=== PATIENT | female | born 1985 | race Caucasian/White ===

== ENCOUNTER 2016-05-19 12:46 | Emergency (ER) | payer OTHER ==
[~2016-05-19] VITALS: Ht 149.9 cm; Wt 85.3 kg
[~2016-05-19 12:46] MED LIST: ACIPHEX20 MG PO; ANTI-DIARRHEA2 MG PO; BENTYL10 MG PO; BUTALB-APAP-CA1 EACH PO; CALCIUM PO; CELEXA40 MG PO; CIPRO500 MG PO; CITALOPRAM HBR20 M1 PO; CLONAZEPAM0.5 MG PO; CYCLOBENZAPRINE10 MG PO; CYMBALTA60 MG PO; DAILY MULTIPLE1 EACH PO; DOCUSATE SODIU100 MG PO; ENDOCET 5-3251 EACH PO; FIORICET 50-301 EACH PO; IBUPROFEN800 MG PO; IMITREX100 MG PO; IRON325 M1 PO; JUNEL FE 1.5-31 EACH; KLONOPIN0.5 M1 PO; MACROBID100 MG PO; MULTIVITAMIN1 EAC2 PO; NAPROSYN250 MG PO; NAPROSYN500 MG PO; NAPROXEN500 MG PO; NEXIUM40 MG PO; OMNICEF300 M1 PO; PAIN & FEVER325 MG PO; PERCOCET 5/31 TABLET PO; PRAVASTATIN SOD40 MG; PRAZOSIN HCL1 MG PO; PREVACID30 MG PO; PRILOSEC OTC20 MG PO; PRISTIQ50 MG PO; PROMETHAZINE HC25 M1 PO; SERTRALINE HCL50 MG PO; TOPIRAMATE50 MG PO; TORADOL10 MG PO; TRAMADOL HCL50 MG PO; TRAZODONE HCL50 MG PO; TYLENOL WITH C1 EACH PO; ULTRAM50 MG PO; VIACTIV SOFT C1 EACH PO; VICODIN 5-3001 EACH PO; XANAX0.5 MG PO; ZOFRAN ODT4 MG PO; ZOFRAN ODT8 MG PO; ZOFRAN4 MG PO
[2016-05-19 13:29] LABS: ADD MIUA? NO; BILIRUBIN NEGATIVE; BLOOD NEGATIVE; COLOR YELLOW ((YELLOW)); GLUCOSE (STRIP) NEGATIVE; KETONES NEGATIVE; LEUKOCYTES NEGATIVE; NITRITE NEGATIVE; PH, URINE 6.5 (5-8); PROTEIN (STRIP) NEGATIVE; SPECIFIC GRAVITY 1.006 (1.000-1.030); UCUL ADDED? NO; UROBILINOGEN 0.2 MG/DL (0.2-1.0)
[2016-05-19 13:32] LABS: HEMATOCRIT 31.9 % (36.0-46.0); MCH 25.6 PG (29.0-34.0); MCHC 32.3 G/DL (30.0-36.0); MCV 79.2 FL (83-99); PLATELET COUNT 255 K/uL (156-360); RBC DIS.WIDTH-CV 12.8 % (11.8-14.6); RBC DIS.WIDTH-SD 36.5 % (39-53); RED BLOOD COUNT 4.03 M/uL (3.80-5.20); WHITE BLOOD COUNT 6.6 K/uL (4.1-10.2)
[2016-05-19 13:39] LABS: CHLORIDE 110 mEq/L (99-109); POTASSIUM 3.6 mEq/L (3.7-5.4); SODIUM 141 mEq/L (136-147)
[2016-05-19 13:41] LABS: GLUCOSE 120 mg/dL (70-99)
[2016-05-19 13:43] LABS: ANION GAP 8 MEQ/L (2-14); TOTAL BILIRUBIN 0.1 mg/dL (0.0-1.0)
[2016-05-19 13:45] LABS: ALKALINE PHOSPHATASE 71 IU/L (3-129); GFR ESTIMATE (CALCULATED) > 59 mL/min/
[2016-05-19 13:46] LABS: UREA NITROGEN (BUN) 4 mg/dL (9-23)
[2016-05-19 13:49] LABS: LIPASE 43 U/L (1.0-51.0)
[2016-05-19 13:57] LABS: QUANTITATIVE HCG < 4.0 MIU/ML
[2016-05-19] MEDS ORDERED: PERCOCET 5/31 TABLET PO (16:31)
[2016-05-19] MEDS ORDERED: NAPROXEN500 MG PO (16:31)
[2016-05-19 17:06] VITALS: BP 145/68
[2016-06-03] MEDS ORDERED: DESYREL 150 MG150 MG PO (15:12)
[2016-06-03] MEDS ORDERED: CIPRO500 MG PO (16:17)
== END 2016-05-19 17:09 | disposition home or self-care (01) ==
LOC: EME 12:46
DX: N83.201 Unspecified ovarian cyst, right side (principal); K21.9 Gastro-esophageal reflux disease without esophagitis; Z98.84 Bariatric surgery status; Z87.891 Personal history of nicotine dependence
CPT/HCPCS: 74176; 80053; 81003; 83690; 84702; 85027; 99281; 99282

== ENCOUNTER 2016-05-21 16:34 | Inpatient (IN) | payer OTHER ==
[~2016-05-21] VITALS: Ht 149.9 cm; Wt 84.8 kg
[2016-05-21 18:45] LABS: EOSINOPHIL (%) 1.7 % (0-5); EOSINOPHIL COUNT 0.1 K/uL (0-0.3); HEMATOCRIT 30.1 % (36.0-46.0); IMMATURE GRANULOCYTE (%) 0.1 % (0.0-0.7); IMMATURE GRANULOCYTE COUNT 0.1 K/uL; LYMPHOCYTE COUNT 1.6 K/uL (1.0-2.8); MCH 25.3 PG (29.0-34.0); MCHC 32.2 G/DL (30.0-36.0); MCV 78.4 FL (83-99); MEAN PLAT.VOLUME 10.2 uM^3 (9.5-12.4); MONOCYTE (%) 7.9 % (3-12); MONOCYTE COUNT 0.6 K/uL (0-0.8); NEUTROPHIL (%) 67.2 % (45-76); NEUTROPHIL COUNT 4.8 K/uL (1.8-6.4); PLATELET COUNT 258 K/uL (156-360); RBC DIS.WIDTH-CV 12.7 % (11.8-14.6); RBC DIS.WIDTH-SD 35.7 % (39-53); RED BLOOD COUNT 3.84 M/uL (3.80-5.20); WHITE BLOOD COUNT 7.1 K/uL (4.1-10.2)
[2016-05-21 18:59] LABS: CHLORIDE 109 mEq/L (99-109); POTASSIUM 3.9 mEq/L (3.7-5.4); SODIUM 139 mEq/L (136-147)
[2016-05-21 19:03] LABS: ANION GAP 5 MEQ/L (2-14)
[2016-05-21 19:04] LABS: SERUM ETHYL ALCOHOL < 10 mg/dL
[2016-05-21 19:05] LABS: ALKALINE PHOSPHATASE 77 IU/L (3-129); GFR ESTIMATE (CALCULATED) > 59 mL/min/
[2016-05-21 19:06] LABS: UREA NITROGEN (BUN) 5 mg/dL (9-23)
[2016-05-21 19:07] LABS: GLUCOSE 87 mg/dL (70-99); TOTAL BILIRUBIN 0.2 mg/dL (0.0-1.0)
[2016-05-21] MEDS ORDERED: FLONASE16 G1 BOTH NARES (19:28)
[2016-05-21] MEDS ORDERED: AMOX TR-K CLV1 EAC4 PO (19:28)
[2016-05-21 19:45] LABS: ADD MIUA? NO; BILIRUBIN NEGATIVE; BLOOD NEGATIVE; COLOR YELLOW ((YELLOW)); GLUCOSE (STRIP) NEGATIVE; KETONES NEGATIVE; LEUKOCYTES NEGATIVE; NITRITE NEGATIVE; PH, URINE 7.5 (5-8); PROTEIN (STRIP) TRACE; SPECIFIC GRAVITY 1.023 (1.000-1.030); UCUL ADDED? NO; UROBILINOGEN 0.2 MG/DL (0.2-1.0)
[2016-05-21 20:01] LABS: ADD MEDTOX COMMENT Y; AMPHETAMINE NEGATIVE (500 ng/mL); BARBITURATES PRESUMPTIVE POSITIVE (200 ng/mL); BENZODIAZEPINES NEGATIVE (150 ng/mL); COCAINE NEGATIVE (150 ng/mL); INTERNAL CONTROLS VALID? YES; METHADONE NEGATIVE (200 ng/mL); METHAMPHETAMINE NEGATIVE (500 ng/mL); OPIATES (MORPHINE) NEGATIVE (100 ng/mL); OXYCODONE PRESUMPTIVE POSITIVE (100 ng/mL); PHENCYCLIDINE NEGATIVE (25 ng/mL); PROPOXYPHENE NEGATIVE (300 ng/mL); THC CANNABINOIDS NEGATIVE (50 ng/mL); TRICYCLIC ANTIDEPRESSANTS NEGATIVE (300 ng/mL)
[2016-05-21 20:59] VITALS: BP 119/81
[2016-05-22 07:48] VITALS: BP 81/47
[2016-05-22 15:52] VITALS: BP 108/57
[2016-05-23 07:41] VITALS: BP 88/55
[2016-05-23] MEDS ORDERED: SERTRALINE HCL100 MG PO (12:43)
[2016-05-23] MEDS ORDERED: TRAZODONE HCL150 MG PO (12:43)
[2016-05-23] MEDS ORDERED: PRAZOSIN HCL1 MG PO (12:43)
[2016-06-03] MEDS ORDERED: DESYREL 150 MG150 MG PO (15:12)
[2016-06-03] MEDS ORDERED: CIPRO500 MG PO (16:17)
== END 2016-05-23 14:10 | disposition home or self-care (01) | DRG 885 ==
LOC: EME 16:34 → EDOF 19:25 → 1WEST 19:25
PROVIDERS: Emergency Medicine
DX: F33.9 Major depressive disorder, recurrent, unspecified (principal); R45.851 Suicidal ideations; F43.12 Post-traumatic stress disorder, chronic; F41.0 Panic disorder [episodic paroxysmal anxiety]; Z62.810 Personal history of physical and sexual abuse in childhood; R10.9 Unspecified abdominal pain; E28.2 Polycystic ovarian syndrome; K21.9 Gastro-esophageal reflux disease without esophagitis; K58.9 Irritable bowel syndrome, unspecified; M41.9 Scoliosis, unspecified; G43.909 Migraine, unspecified, not intractable, without status migrainosus; E66.3 Overweight; Z98.84 Bariatric surgery status; Z87.891 Personal history of nicotine dependence; Z68.37 Body mass index [BMI] 37.0-37.9, adult
CPT/HCPCS: 80053; 81003; 84999; 85025; 90839; 97150 GO; 97166 GO; 99281; 99284; G0480; Q0177

== ENCOUNTER 2016-06-06 05:10 | Inpatient (IN) | payer OTHER ==
[~2016-06-06] VITALS: Ht 149.9 cm; Wt 94.9 kg
[~2016-06-06 05:10] MED LIST changes: +AMOX TR-K CLV1 EAC4 PO; +DESYREL 150 MG150 MG PO; +FLONASE16 G1 BOTH NARES; +SERTRALINE HCL100 MG PO; +TRAZODONE HCL150 MG PO
[2016-06-06 12:25] VITALS: BP 117/70
[2016-06-06 19:35] VITALS: BP 120/75
[2016-06-06 23:39] VITALS: BP 104/66
[2016-06-07 03:20] VITALS: BP 102/51
[2016-06-07 06:55] VITALS: BP 121/65
[2016-06-07 08:36] LABS: HEMATOCRIT 29.3 % (36.0-46.0); MCH 24.7 PG (29.0-34.0); MCHC 31.4 G/DL (30.0-36.0); MCV 78.8 FL (83-99); MEAN PLAT.VOLUME 10.6 uM^3 (9.5-12.4); PLATELET COUNT 181 K/uL (156-360); RBC DIS.WIDTH-CV 13.5 % (11.8-14.6); RBC DIS.WIDTH-SD 38.7 % (39-53); RED BLOOD COUNT 3.72 M/uL (3.80-5.20)
[2016-06-07 09:40] LABS: ANION GAP 8 MEQ/L (2-14); CHLORIDE 102 MEQ/L (99-109); GFR ESTIMATE (CALCULATED) > 59 mL/min/; GLUCOSE 103 mg/dL (70-99); POTASSIUM 3.7 MEQ/L (3.7-5.4); SAMPLE HEMOLYSIS CHECK 0; SAMPLE ICTERIC CHECK 0; SAMPLE LIPEMIA CHECK 0; SODIUM 136 MEQ/L (136-147); UREA NITROGEN (BUN) 4 mg/dL (9-23)
[2016-06-07 12:03] VITALS: BP 122/72
[2016-06-07 15:55] VITALS: BP 117/69
[2016-06-07 23:06] VITALS: BP 113/55
[2016-06-08 07:11] LABS: HEMATOCRIT 26.2 % (36.0-46.0); MCH 24.6 PG (29.0-34.0); MCHC 31.3 G/DL (30.0-36.0); MCV 78.4 FL (83-99); MEAN PLAT.VOLUME 10.5 uM^3 (9.5-12.4); PLATELET COUNT 192 K/uL (156-360); RBC DIS.WIDTH-CV 13.8 % (11.8-14.6); RBC DIS.WIDTH-SD 39.5 % (39-53); RED BLOOD COUNT 3.34 M/uL (3.80-5.20)
[2016-06-08 07:13] LABS: WHITE BLOOD COUNT 6.8 K/uL (4.1-10.2)
[2016-06-08 07:19] LABS: ANION GAP 9 MEQ/L (2-14); CHLORIDE 103 MEQ/L (99-109); GFR ESTIMATE (CALCULATED) > 59 mL/min/; GLUCOSE 81 mg/dL (70-99); POTASSIUM 3.3 MEQ/L (3.7-5.4); SAMPLE HEMOLYSIS CHECK 0; SAMPLE ICTERIC CHECK 0; SAMPLE LIPEMIA CHECK 0; SODIUM 139 MEQ/L (136-147); UREA NITROGEN (BUN) 3 mg/dL (9-23)
[2016-06-08] MEDS ORDERED: TRAMADOL HCL50 MG PO (08:43)
== END 2016-06-08 09:03 | disposition home or self-care (01) | DRG 742 ==
LOC: 2SOUTH 05:10 → 2EAST 19:02
PROVIDERS: Nurse Practitioner Acute Care
DX: N83.201 Unspecified ovarian cyst, right side (principal); Z68.42 Body mass index [BMI] 45.0-49.9, adult; F32.9 Major depressive disorder, single episode, unspecified; E66.9 Obesity, unspecified; N73.6 Female pelvic peritoneal adhesions (postinfective); F41.9 Anxiety disorder, unspecified; Z87.891 Personal history of nicotine dependence; N13.5 Crossing vessel and stricture of ureter without hydronephrosis
CPT/HCPCS: 36415; 80048; 85027; 86850; 86900; 86901; 86920; 88305; 94799; C1758; J0330; J0690; J1100; J1170; J1650; J1885; J2270; J2405; J2710; J2765; J3010

== ENCOUNTER 2017-01-12 11:46 | Emergency (ER) | payer OTHER ==
[~2017-01-12] VITALS: Ht 149.9 cm; Wt 81.8 kg
[2017-01-12] MEDS ORDERED: TRAMADOL HCL50 MG PO (12:49)
[2017-01-12] MEDS ORDERED: FLEXERIL10 MG PO (12:49)
[2017-01-12 13:17] VITALS: BP 115/99
== END 2017-01-12 13:20 | disposition home or self-care (01) ==
LOC: EME 11:46
DX: S39.012A Strain of muscle, fascia and tendon of lower back, initial encounter (principal); W10.9XXA Fall (on) (from) unspecified stairs and steps, initial encounter; Z90.710 Acquired absence of both cervix and uterus; Z98.84 Bariatric surgery status; Z87.891 Personal history of nicotine dependence
CPT/HCPCS: 99281; 99283

== ENCOUNTER 2017-02-06 13:23 | Emergency (ER) | payer OTHER ==
[~2017-02-06] VITALS: Ht 149.9 cm; Wt 81.4 kg
[~2017-02-06 13:23] MED LIST changes: +FLEXERIL10 MG PO
[2017-02-06 16:42] LABS: HEMATOCRIT 33.2 % (36.0-46.0); MCH 22.1 PG (29.0-34.0); MCHC 30.7 G/DL (30.0-36.0); MCV 71.9 FL (83-99); MEAN PLAT.VOLUME 10.2 uM^3 (9.5-12.4); PLATELET COUNT 265 K/uL (156-360); RBC DIS.WIDTH-CV 16.4 % (11.8-14.6); RBC DIS.WIDTH-SD 42.3 % (39-53); RED BLOOD COUNT 4.62 M/uL (3.80-5.20); WHITE BLOOD COUNT 6.8 K/uL (4.1-10.2)
[2017-02-06 16:48] LABS: CHLORIDE 104 mEq/L (99-109); POTASSIUM 4.1 mEq/L (3.7-5.4); SODIUM 139 mEq/L (136-147)
[2017-02-06 16:51] LABS: GLUCOSE 84 mg/dL (70-99)
[2017-02-06 16:52] LABS: ANION GAP 10 MEQ/L (2-14)
[2017-02-06 16:53] LABS: TOTAL BILIRUBIN 0.3 mg/dL (0.0-1.0)
[2017-02-06 16:54] LABS: ALKALINE PHOSPHATASE 99 IU/L (3-129); GFR ESTIMATE (CALCULATED) > 59 mL/min/
[2017-02-06 16:55] LABS: UREA NITROGEN (BUN) 8 mg/dL (9-23)
[2017-02-06] MEDS ORDERED: FLEXERIL10 MG PO (17:28)
[2017-02-06] MEDS ORDERED: PREDNISONE20 MG PO (17:28)
[2017-02-06] MEDS ORDERED: LIDODERM 5% P1 PATCH TD (17:28)
[2017-02-06] MEDS ORDERED: VALIUM10 MG PO (17:29)
[2017-02-06 19:06] VITALS: BP 124/96
== END 2017-02-06 19:07 | disposition home or self-care (01) ==
LOC: EME 13:23
PROVIDERS: Nurse Practitioner Family
DX: M54.40 Lumbago with sciatica, unspecified side (principal); K21.9 Gastro-esophageal reflux disease without esophagitis; Z98.84 Bariatric surgery status; Z87.891 Personal history of nicotine dependence
CPT/HCPCS: 72100; 80053; 81003; 85027; 99281; 99284; J7512

== ENCOUNTER 2017-02-18 13:51 | Emergency (ER) | payer OTHER ==
[~2017-02-18] VITALS: Ht 149.9 cm; Wt 82.0 kg
[~2017-02-18 13:51] MED LIST changes: +LIDODERM 5% P1 PATCH TD; +PREDNISONE20 MG PO; +VALIUM10 MG PO
[2017-02-18] MEDS ORDERED: PERCOCET 5/31 TABLET PO (15:37)
[2017-02-18 16:27] VITALS: BP 110/78
== END 2017-02-18 16:33 | disposition home or self-care (01) ==
LOC: EME 13:51
PROC: 2W3RX1Z Immobilization of Left Lower Leg using Splint (ICD-10-PCS; principal; 2017-02-18)
DX: S92.352A Displaced fracture of fifth metatarsal bone, left foot, initial encounter for closed fracture (principal); S93.402A Sprain of unspecified ligament of left ankle, initial encounter; W17.89XA Other fall from one level to another, initial encounter; Y92.480 Sidewalk as the place of occurrence of the external cause; M41.9 Scoliosis, unspecified
CPT/HCPCS: 73610; 73630; 99281; 99284

== ENCOUNTER 2017-05-26 18:30 | Emergency (ER) | payer OTHER ==
[~2017-05-26] VITALS: Ht 149.9 cm; Wt 86.5 kg
[2017-05-26 20:07] LABS: ALBUMIN 4.2 g/dL (3.2-4.8); CHLORIDE 107 mEq/L (99-109); POTASSIUM 4.1 mEq/L (3.7-5.4); SODIUM 140 mEq/L (136-147)
[2017-05-26 20:09] LABS: GLUCOSE 101 mg/dL (70-99)
[2017-05-26 20:10] LABS: HEMOGLOBIN 9.9 G/DL (11.9-15.5); MCH 22.4 PG (29.0-34.0); MCHC 30.9 G/DL (30.0-36.0); MCV 72.4 FL (83-99); PLATELET COUNT 292 K/uL (156-360); RBC DIS.WIDTH-CV 15.5 % (11.8-14.6); RBC DIS.WIDTH-SD 40.3 % (39-53); RED BLOOD COUNT 4.42 M/uL (3.80-5.20); TOTAL PROTEIN 7.9 g/dL (6.4-8.3); WHITE BLOOD COUNT 8.2 K/uL (4.1-10.2)
[2017-05-26 20:11] LABS: TOTAL BILIRUBIN 0.4 mg/dL (0.0-1.0)
[2017-05-26 20:13] LABS: ALKALINE PHOSPHATASE 82 IU/L (3-129); CREATININE 0.8 mg/dL (0.6-1.3); GFR ESTIMATE (CALCULATED) > 59 mL/min/
[2017-05-26 20:14] LABS: UREA NITROGEN (BUN) 9 mg/dL (9-23)
[2017-05-26 20:15] LABS: AST (GOT) 14 IU/L (2-34)
[2017-05-26 20:16] LABS: ALT (GPT) 10 IU/L (3-49); LIPASE 55 U/L (1.0-51.0)
[2017-05-26 20:25] LABS: QUANTITATIVE HCG < 4.0 MIU/ML
[2017-05-26] MEDS ORDERED: BENTYL20 MG PO (20:59)
[2017-05-26] MEDS ORDERED: ATARAX10 MG PO (21:00)
[2017-05-26 23:11] LABS: APPEARANCE CLEAR ((CLEAR)); BILIRUBIN NEGATIVE; BLOOD NEGATIVE; COLOR STRAW ((YELLOW)); GLUCOSE (STRIP) NEGATIVE; KETONES NEGATIVE; LEUKOCYTES NEGATIVE; NITRITE NEGATIVE; PROTEIN (STRIP) NEGATIVE; SPECIFIC GRAVITY 1.034 (1.000-1.030); UCUL ADDED? NO; UROBILINOGEN 0.2 MG/DL (0.2-1.0)
[2017-05-27 00:19] VITALS: BP 124/86
== END 2017-05-27 00:20 | disposition home or self-care (01) ==
LOC: EME 18:30
DX: R10.31 Right lower quadrant pain (principal); K58.9 Irritable bowel syndrome, unspecified; K21.9 Gastro-esophageal reflux disease without esophagitis; Z98.84 Bariatric surgery status; Z90.710 Acquired absence of both cervix and uterus; M41.9 Scoliosis, unspecified; F32.9 Major depressive disorder, single episode, unspecified; F41.9 Anxiety disorder, unspecified
CPT/HCPCS: 74177; 80053; 81003; 83690; 84702; 85027; 99281; 99285; J1200; J2270; J2405; J7030

== ENCOUNTER 2017-06-03 10:33 | Emergency (ER) | payer OTHER ==
[~2017-06-03] VITALS: Ht 149.9 cm; Wt 85.9 kg
[~2017-06-03 10:33] MED LIST changes: +ATARAX10 MG PO; +BENTYL20 MG PO
[2017-06-03 11:33] LABS: HEMATOCRIT 32.4 % (36.0-46.0); HEMOGLOBIN 9.9 G/DL (11.9-15.5); MCH 22.1 PG (29.0-34.0); MCHC 30.6 G/DL (30.0-36.0); MCV 72.3 FL (83-99); PLATELET COUNT 278 K/uL (156-360); RBC DIS.WIDTH-CV 15.4 % (11.8-14.6); RED BLOOD COUNT 4.48 M/uL (3.80-5.20); WHITE BLOOD COUNT 5.9 K/uL (4.1-10.2)
[2017-06-03 11:45] LABS: ALBUMIN 4.2 g/dL (3.2-4.8); CHLORIDE 107 mEq/L (99-109); POTASSIUM 3.9 mEq/L (3.7-5.4); SODIUM 142 mEq/L (136-147)
[2017-06-03 11:46] LABS: QUANTITATIVE HCG < 4.0 MIU/ML
[2017-06-03 11:47] LABS: GLUCOSE 82 mg/dL (70-99); TOTAL PROTEIN 7.7 g/dL (6.4-8.3)
[2017-06-03 11:49] LABS: TOTAL BILIRUBIN 0.3 mg/dL (0.0-1.0)
[2017-06-03 11:51] LABS: ALKALINE PHOSPHATASE 83 IU/L (3-129); CREATININE 0.7 mg/dL (0.6-1.3); GFR ESTIMATE (CALCULATED) > 59 mL/min/
[2017-06-03 11:52] LABS: UREA NITROGEN (BUN) 10 mg/dL (9-23)
[2017-06-03 11:53] LABS: AST (GOT) 15 IU/L (2-34)
[2017-06-03 12:11] LABS: ALT (GPT) 12 IU/L (3-49); LIPASE 50 U/L (1.0-51.0)
[2017-06-03 13:08] LABS: APPEARANCE CLEAR ((CLEAR)); BILIRUBIN NEGATIVE; BLOOD NEGATIVE; COLOR AMBER ((YELLOW)); GLUCOSE (STRIP) NEGATIVE; KETONES NEGATIVE; LEUKOCYTES TRACE; NITRITE POSITIVE; PROTEIN (STRIP) NEGATIVE; SPECIFIC GRAVITY 1.019 (1.000-1.030)
[2017-06-03 13:12] LABS: BACTERIA NONE SEEN /HPF; EPITHELIAL CELLS RARE /HPF; MUCUS TRACE /LPF; RED BLOOD CELLS 0-5 /HPF (0-5); UCUL ADDED? NO; WHITE BLOOD CELLS 0-5 /HPF (0-5)
[2017-06-03] MEDS ORDERED: PERCOCET 5/31 TABLET PO (13:55)
[2017-06-03] MEDS ORDERED: [UNRECOGNIZED DRUG - OTHER] (13:57)
[2017-06-03 14:22] VITALS: BP 151/65
== END 2017-06-03 14:23 | disposition home or self-care (01) ==
LOC: EME 10:33
DX: K82.8 Other specified diseases of gallbladder (principal); D64.9 Anemia, unspecified; K21.9 Gastro-esophageal reflux disease without esophagitis; K58.9 Irritable bowel syndrome, unspecified; F41.9 Anxiety disorder, unspecified; F32.9 Major depressive disorder, single episode, unspecified; M41.9 Scoliosis, unspecified; Z98.84 Bariatric surgery status; Z88.8 Allergy status to other drugs, medicaments and biological substances; Z91.041 Radiographic dye allergy status
CPT/HCPCS: 76705; 80053; 81003; 83690; 84702; 85027; 99281; 99284

== ENCOUNTER → 2017-06-09 | Outpatient (CLI) | payer OTHER ==
[~2017-06-09] MED LIST changes: +[UNRECOGNIZED DRUG - OTHER]
== END | disposition home or self-care (01) ==
LOC: NUC 12:59
DX: R10.9 Unspecified abdominal pain (principal)
CPT/HCPCS: 78227; A9537; J2805

== ENCOUNTER 2017-10-10 16:31 | Emergency (ER) | payer OTHER ==
[~2017-10-10] VITALS: Ht 149.9 cm; Wt 85.0 kg
[2017-10-10] MEDS ORDERED: TRAZODONE HCL150 MG PO (17:12)
[2017-10-10] MEDS ORDERED: AMOXICILLIN875 MG PO (17:13)
[2017-10-10] MEDS ORDERED: ULTRAM50 MG PO (17:42)
[2017-10-10] MEDS ORDERED: MEDROL DOSEPAK4 MG PO (17:42)
[2017-10-10 17:57] VITALS: BP 106/64
== END 2017-10-10 17:58 | disposition home or self-care (01) ==
LOC: EME 16:31
DX: M54.16 Radiculopathy, lumbar region (principal); F32.9 Major depressive disorder, single episode, unspecified; K21.9 Gastro-esophageal reflux disease without esophagitis; F41.9 Anxiety disorder, unspecified; K58.9 Irritable bowel syndrome, unspecified; Z98.84 Bariatric surgery status
CPT/HCPCS: 99281; 99283